=== PATIENT | female | born 1980 | race Hispanic/Latino ===

== ENCOUNTER 2017-09-06 08:22 | Outpatient (CLI) | payer BC ==
--- NOTE | 2017-09-06 09:32 | Mammography Report ---
BILATERAL DIGITAL AUGMENTED DIAGNOSTIC MAMMOGRAM WITH CAD and RIGHT BREAST ULTRASOUND: 09/06/17 08:22:00 CLINICAL: Palpable lump in the right axillary tail. COMPARISON:None. These are baseline studies. FINDINGS: Bilateral MLO and CC views with and without implant displacement demonstrate heterogeneously dense breasts, which may obscure small masses. No mass, architectural distortion or suspicious calcifications. No mammographic finding is identified at a right axillary palpable marker. Intact subpectoral implants. Ultrasound of the right breast was performed and demonstrated a benign superficial lymph node at 10 o'clock 9 cm from the nipple. It has central fat, measures 5 x 5 x 3 mm and correlates with the palpable lump. No suspicious lymph node or mass. IMPRESSION: A palpable benign 5 mm intramammary lymph node of the right axillary tail and otherwise negative exams. BI-RADS CATEGORY: 2 - - Benign RECOMMENDATION: Clinical followup and routine mammographic screening based on ACS guidelines.
== END 2017-09-06 08:23 | disposition home or self-care (01) ==
LOC: SPVWC 08:22
PROVIDERS: ATTEND Obstetrics & Gynecology
DX: N63.31 Unspecified lump in axillary tail of the right breast (principal)
CPT/HCPCS: 77066